=== PATIENT | male | born 1935 | race Caucasian/White ===

== ENCOUNTER 2022-04-21 13:50 | Inpatient (IN) | payer MEDICARE, OTHER ==
[~2022-04-21] VITALS: Ht 188 cm; Wt 87.0 kg
[2022-04-21 15:17] LABS: BASOPHILS ABSOLUTE AUTO 0.04 K/mm3 (0.00-0.23); BASOPHILS PERCENT AUTO 1 % (0-2); EOSINOPHILS ABSOLUTE AUTO 0.05 K/mm3 (0.00-0.68); EOSINOPHILS PERCENT AUTO 1 % (0-6); Hematocrit 38.6 % (37.0-53.0); Hemoglobin 13.1 g/dL (13.5-17.5); IMMATURE GRAN ABSOLUTE AUTO 0.01 K/mm3 (0.00-0.10); IMMATURE GRAN PERCENT AUTO 0 % (0-1); LYMPHOCYTES ABSOLUTE AUTO 1.01 K/mm3 (0.84-5.20); LYMPHOCYTES PERCENT AUTO 18 % (21-46); MONOCYTES PERCENT AUTO 7 % (4-13); Mean Corpuscular HGB Conc 33.9 g/dL (31.5-36.5); Mean Corpuscular Volume 94 fL (80-100); Mean Platelet Volume 8.9 fL (9.1-12.4); NEUTROPHILS ABSOLUTE AUTO 4.03 K/mm3 (1.96-9.15); NEUTROPHILS PERCENT AUTO 73 % (41-73); Platelet Count 168 K/mm3 (150-400); RDW Coefficient Variation 13.2 % (11.7-14.2); RDW Standard Deviation 46.2 fL (35.1-46.3); Red Blood Cell Count 4.09 M/mm3 (4.30-5.90); White Blood Cell Count 5.54 K/mm3 (4.00-11.30)
[2022-04-21 15:34] LABS: Albumin, Blood 3.3 g/dL (3.4-5.0); Bilirubin, Total 1.6 mg/dL (0.1-1.0); Bun/Creatinine Ratio 23.1 (12.0-20.0); Calcium, Blood 8.8 mg/dL (8.5-10.1); Creatinine, Blood 1.08 mg/dL (0.60-1.20); Globulin, Blood 3.2 g/dL (2.2-4.0); Potassium, Blood 4.2 mmol/L (3.5-5.5); Total Protein, Blood 6.5 g/dL (6.4-8.2)
[2022-04-22 06:43] LABS: BASOPHILS ABSOLUTE AUTO 0.04 K/mm3 (0.00-0.23); BASOPHILS PERCENT AUTO 1 % (0-2); EOSINOPHILS ABSOLUTE AUTO 0.14 K/mm3 (0.00-0.68); EOSINOPHILS PERCENT AUTO 3 % (0-6); Hematocrit 39.1 % (37.0-53.0); Hemoglobin 12.7 g/dL (13.5-17.5); IMMATURE GRAN PERCENT AUTO 0 % (0-1); LYMPHOCYTES ABSOLUTE AUTO 1.26 K/mm3 (0.84-5.20); LYMPHOCYTES PERCENT AUTO 29 % (21-46); MONOCYTES ABSOLUTE AUTO 0.46 K/mm3 (0.16-1.47); MONOCYTES PERCENT AUTO 11 % (4-13); Mean Corpuscular HGB 31.1 pg (26.0-34.0); Mean Corpuscular HGB Conc 32.5 g/dL (31.5-36.5); Mean Corpuscular Volume 96 fL (80-100); Mean Platelet Volume 9.3 fL (9.1-12.4); NEUTROPHILS ABSOLUTE AUTO 2.49 K/mm3 (1.96-9.15); NEUTROPHILS PERCENT AUTO 57 % (41-73); Platelet Count 175 K/mm3 (150-400); RDW Coefficient Variation 13.2 % (11.7-14.2); RDW Standard Deviation 46.5 fL (35.1-46.3); Red Blood Cell Count 4.09 M/mm3 (4.30-5.90); White Blood Cell Count 4.39 K/mm3 (4.00-11.30)
[2022-04-22 07:01] LABS: Albumin, Blood 3.3 g/dL (3.4-5.0); Albumin/Globulin Ratio 1.2 (0.8-1.8); Bilirubin, Total 1.4 mg/dL (0.1-1.0); Bun/Creatinine Ratio 23.6 (12.0-20.0); Calcium, Blood 8.6 mg/dL (8.5-10.1); Creatinine, Blood 1.06 mg/dL (0.60-1.20); Globulin, Blood 2.8 g/dL (2.2-4.0); Potassium, Blood 4.2 mmol/L (3.5-5.5); Total Protein, Blood 6.1 g/dL (6.4-8.2)
--- NOTE | 2022-04-22 10:56 | NUR ---
Echocardiogram completed.
--- NOTE | 2022-04-22 18:09 | NUR ---
PT ARRIVED TO PC[facility] AT 1230 FROM [facility]. PACEMAKER SITE C/D/I WITH MINIMAL PAIN REPORTED FROM PT. AT BEDSIDE UPON ARRIVAL. PT ABLE TO TRANSFER SELF TO HOSPITAL BED WITH MINIMAL ASSISTANCE. PT ON RA UPON ARRIVAL TO UNIT WITH SATS IN THE HIGH 90'S. O REPORT OF CHEST PAIN/PRESSURE.
--- NOTE | 2022-04-22 18:11 | NUR ---
SHIFT SUMMARY PT A/OX4 AND COOPERATIVE OF CARE. PT BP STABLE UPON ARRIVAL, BP'S INCREASED TO SBP IN THE 160'S AROUND 1630. NO REPORT OF CHEST PAIN/PRESSURE SINCE ARRIVAL TO UNIT. NO REPORT OF SOB/DYSPNEA SINCE ARRIVAL TO UNIT. PT POST PACEMAKER, SITE C/D/I. ICE PACK IN PLACE FOR SWELLING. SLING IN PLACE. OTHER VSS SINCE ARRIVAL TO UNIT.
[2022-04-22] MEDS ORDERED: Prinivil10 MG PO (20:45)
--- NOTE | 2022-04-22 21:11 | NUR ---
ASSUMED CARE OF PATIENT AT APPROXIMATELY 1910 FROM PING Banuelos RN. PATIENT ALERT AND ORIENTED X4; FORGETFUL AT TIMES; PATIENT NEEDS REMINDED NOT TO USE LEFT ARM AND S/P PACEMAKER RESTRICTIONS. LEFT ARM SLING IN PLACE. PATIENT REPORTS NUMBNESS AND TINGLING IN LEG AT TIMES CHRONIC. PATIENT DENIES PAIN, DIZZINESS, AND NAUSEA. SR OR PACED ON TELE; OXYGEN SATURATION ABOVE 90% ON ROOM AIR. 2X PIV S/L. SBA OUT OF BED TO BATHROOM TO URINATE. PATIENT'S BLOOD PRESSURE ELEVATED; PATIENT REPORTS HE IS A LITTLE ANXIOUS; PATIENT REPORTS HE TAKES 10MG OF LISINOPRIL AT HOME; ADDED TO MED REC; DR. LARES RESIDENT NOTIFIED AND HOME DOSE OF LISINOPRIL ORDERED.
--- NOTE | 2022-04-22 23:48 | NUR ---
TR BAND REMOVED AND TEGADERM PLACED WITH ARMBOARD; NO CHANGES TO SITE
--- NOTE | 2022-04-23 06:02 | NUR ---
PATIENT SLEPT ABOUT SEVEN HOURS LAST NIGHT. NO ACUTE CHANGES TO REPORT.
--- NOTE | 2022-04-23 13:21 | NUR ---
DISCHARGE UPDATE DISCHARGE PACKET GONE OVER WITH PT AND PT AT 1305. PT LEFT UNIT AT 1313 VIA WHEELCHAIR AND ON RA. PT ABLE TO TRANSFER TO AND FROM WHEELCHAIR ON HIS OWN, TOLERATED WELL. PT WEARING SLING ON LEFT ARM WHEN DISCHARGED. PT BELONGINGS IN BAGS AND WITH PT DURING DISCHARGE. DISCHARGE PACKET IN BAGS WITH PT .
== END 2022-04-23 13:30 | disposition home or self-care (01) | DRG 244 ==
LOC: ER 13:50 → ERHOLD 13:52 → PCU 04-22 13:46
PROVIDERS: Physician Assistant; ADMIT Internal Medicine
PROC: 0JH606Z Insertion of Pacemaker, Dual Chamber into Chest Subcutaneous Tissue and Fascia, Open Approach (ICD-10-PCS; principal; 2022-04-22)
PROC: 02H63JZ Insertion of Pacemaker Lead into Right Atrium, Percutaneous Approach (ICD-10-PCS; 2022-04-22)
PROC: 02HK3JZ Insertion of Pacemaker Lead into Right Ventricle, Percutaneous Approach (ICD-10-PCS; 2022-04-22)
DX: I49.5 Sick sinus syndrome (principal); I10 Essential (primary) hypertension; Z85.850 Personal history of malignant neoplasm of thyroid
CPT/HCPCS: 33208; 36415; 71045; 71046; 80053; 83735; 83880; 85025; 93005; 93010; 93306; 99152; 99153; 99285-25; A9270; C1785; C1894; C1898; G0378; J0360; J0690; J1644; J2250; J3010; J7030; J7040

== ENCOUNTER 2024-07-19 09:34 | Day surgery (SDC) | payer OTHER ==
[~2024-07-19] VITALS: Ht 188 cm; Wt 90.5 kg
[~2024-07-19 09:34] MED LIST: Lactated Ringer's 1,000 ML IV ONE; Lidocaine HCl/Pf 1% 5 ML VIAL ONE; Prinivil10 MG PO
[2024-07-19] MEDS ORDERED: CeFAZolin Sodium 2,000 MG VIAL ONE (09:52)
[2024-07-19] MEDS ORDERED: NS 50 ML IV ONE (09:52)
[2024-07-19] MEDS ORDERED: ELIQUIS5 M3 PO (09:59)
[2024-07-19] MEDS ORDERED: propofoL 60 ML IV ONE (10:26)
[2024-07-19] MEDS ORDERED: Lactated Ringer's 1,000 ML IV ONE (10:30)
[2024-07-19] MEDS ORDERED: Bupivacaine 0.5% HCl 5 MG/ML 30MLVIAL XX ONE (11:32)
[2024-07-19] MEDS ORDERED: Lidocaine HCl/Pf 1% 5 ML VIAL XX ONE (11:32)
--- NOTE | 2024-07-19 12:38 | NUR ---
07/19/24 1238 Terrence Emmanuel PT'S HEART RATE IRREGULAR IN SDU. MONITOR SHOWED 30'S-100'S. PULSE PALPATED MANUALLY AT 62 BPM AT 1155 AND 61 BPM AT 1209. PT DENIED CP, TAPIA, SOB, DIZZINESS, NAUSEA, VISUAL DISTURBANCES, WEAKNESS, AND OTHER CARDIAC SYMPTOMS. NONE WERE OBSERVED. DR. VALDES CONSULTED AND APPROVED D/C WITH STABLE B/P. B/P CUFF MOVED FROM RIGHT LEG TO RIGHT ARM AT 1220. PT STATED IT WAS CAUSING PAIN.
[2024-07-19 13:45] VITALS: BP 158/82
== END 2024-07-19 13:25 | disposition home or self-care (01) ==
LOC: ORSCSDS 09:34
PROVIDERS: Surgery
PROC: 05HM33Z Insertion of Infusion Device into Right Internal Jugular Vein, Percutaneous Approach (ICD-10-PCS; principal; 2024-07-19 11:00)
PROC: 0JH63WZ Insertion of Totally Implantable Vascular Access Device into Chest Subcutaneous Tissue and Fascia, Percutaneous Approach (ICD-10-PCS; principal; 2024-07-19 11:00)
PROC: B543ZZA Ultrasonography of Right Jugular Veins, Guidance (ICD-10-PCS; principal; 2024-07-19 11:00)
DX: C25.9 Malignant neoplasm of pancreas, unspecified (principal); Z95.0 Presence of cardiac pacemaker; F41.9 Anxiety disorder, unspecified; Z86.718 Personal history of other venous thrombosis and embolism; Z79.01 Long term (current) use of anticoagulants; I25.2 Old myocardial infarction; I12.9 Hypertensive chronic kidney disease with stage 1 through stage 4 chronic kidney disease, or unspecified chronic kidney disease; N18.30 Chronic kidney disease, stage 3 unspecified; Z85.828 Personal history of other malignant neoplasm of skin; Z85.810 Personal history of malignant neoplasm of tongue; Z85.818 Personal history of malignant neoplasm of other sites of lip, oral cavity, and pharynx; Z79.899 Other long term (current) drug therapy; Z87.891 Personal history of nicotine dependence
CPT/HCPCS: 77001; C1788; J0690; J1642; J2001; J2003; J2704; J7120

== ENCOUNTER 2024-09-15 21:39 | Emergency (ER) | payer OTHER ==
[~2024-09-15] VITALS: Ht 188 cm; Wt 88.0 kg
[~2024-09-15 21:39] MED LIST changes: +ELIQUIS5 M3 PO; -Lactated Ringer's 1,000 ML IV ONE; -Lidocaine HCl/Pf 1% 5 ML VIAL ONE
[2024-09-15 22:08] LABS: BASOPHILS ABSOLUTE AUTO 0.02 K/mm3 (0.00-0.23); BASOPHILS PERCENT AUTO 0 % (0-2); EOSINOPHILS ABSOLUTE AUTO 0.01 K/mm3 (0.00-0.68); EOSINOPHILS PERCENT AUTO 0 % (0-6); Hematocrit 36.3 % (37.0-53.0); Hemoglobin 11.8 g/dL (13.5-17.5); IMMATURE GRAN ABSOLUTE AUTO 0.03 K/mm3 (0.00-0.10); IMMATURE GRAN PERCENT AUTO 0 % (0-1); LYMPHOCYTES ABSOLUTE AUTO 0.32 K/mm3 (0.84-5.20); LYMPHOCYTES PERCENT AUTO 4 % (21-46); MONOCYTES ABSOLUTE AUTO 0.73 K/mm3 (0.16-1.47); MONOCYTES PERCENT AUTO 8 % (4-13); Mean Corpuscular HGB 30.4 pg (26.0-34.0); Mean Corpuscular HGB Conc 32.5 g/dL (31.5-36.5); Mean Corpuscular Volume 94 fL (80-100); Mean Platelet Volume 8.9 fL (9.1-12.4); NEUTROPHILS ABSOLUTE AUTO 8.06 K/mm3 (1.96-9.15); NEUTROPHILS PERCENT AUTO 88 % (41-73); Platelet Count 206 K/mm3 (150-400); RDW Coefficient Variation 13.1 % (11.7-14.2); RDW Standard Deviation 45.1 fL (35.1-46.3); Red Blood Cell Count 3.88 M/mm3 (4.30-5.90); White Blood Cell Count 9.17 K/mm3 (4.00-11.30)
[2024-09-15 22:21] LABS: Albumin, Blood 3.3 g/dL (3.4-5.0); Albumin/Globulin Ratio 0.9 (0.8-1.8); Bilirubin, Total 1.5 mg/dL (0.1-1.0); Calcium, Blood 9.1 mg/dL (8.5-10.1); Globulin, Blood 3.6 g/dL (2.2-4.0); Total Protein, Blood 6.9 g/dL (6.4-8.2)
[2024-09-15 22:45] VITALS: BP 156/67
[2024-09-15 22:48] LABS: Source, Urine Clean Catch
[2024-09-15 22:51] LABS: Bilirubin, Urine Neg (Neg); Blood, Urine Neg (Neg); Glucose Qualitative, Urine Neg (Neg); Ketones, Urine Neg (Neg); Leukocyte Esterase, Urine Neg (Neg); Nitrite, Urine Neg (Neg); Protein, Urine 1+ (Neg); Urobilinogen, Urine 1+ (Normal)
[2024-09-15 22:57] LABS: Appearance, Urine Clear (Clear); Color, Urine Yellow (P-Yellow)
== END 2024-09-15 23:37 | disposition home or self-care (01) ==
LOC: ER 21:39
PROVIDERS: Emergency Medicine
DX: R53.1 Weakness (principal); I10 Essential (primary) hypertension; Z95.0 Presence of cardiac pacemaker; Z79.01 Long term (current) use of anticoagulants
CPT/HCPCS: 70450; 80053; 82947; 85025; 93005; 93010; 99285-25